=== PATIENT | male | born 1970 | race Caucasian/White ===

== ENCOUNTER 2021-11-17 00:17 | Emergency (ER) | payer SELFPAY ==
[~2021-11-17] VITALS: Ht 165.1 cm; Wt 68.0 kg
--- NOTE | 2021-11-17 00:25 | NUR ---
Patient BIB by P, taken to [facility].
[2021-11-17 00:27] VITALS: BP 141/76
--- NOTE | 2021-11-17 00:34 | NUR ---
Dr. Monet examining patient.
[2021-11-17 00:39] VITALS: BP 141/76
--- NOTE | 2021-11-17 00:39 | NUR ---
Patient D/C to custody.
== END 2021-11-17 00:39 ==
LOC: MED 00:17
DX: Z72.89 Other problems related to lifestyle; V49.88XA Car occupant (driver) (passenger) injured in other specified transport accidents, initial encounter; Y93.89 Activity, other specified; Y92.89 Other specified places as the place of occurrence of the external cause; Y99.8 Other external cause status
CPT/HCPCS: 99283